=== PATIENT | female | born 1975 | race Caucasian/White ===

== ENCOUNTER 2016-12-09 08:55 | Emergency (ER) | payer OTHER ==
[~2016-12-09] VITALS: Ht 157.4 cm; Wt 68.0 kg
[~2016-12-09 08:55] MED LIST: ADVAIR 250/501 EA PO; ALBUTEROL0.09 MG/A2 PO; ATARAX25 MG PO; ATIVAN0.5 MG PO; CELEBREX200 MG PO; CELEXA40 MG PO; CITALOPRAM20 MG PO; CLARITIN10 MG PO; DICLOFENAC SOD75 MG PO; FLEXERIL5 MG PO; GABAPENTIN300 MG PO; HYDROCODONE BIT1 T11 PO; KEFLEX500 MG PO; LOMOTIL 0.025 M1 TA1 PO; MACROBID100 M1 PO; MEDROL DOSEPAK4 MG PO; MOTRIN800 MG PO; NKHM; PEN-VEE K500 MG PO; PENICILLIN VK500 MG PO; PHENERGAN25 M3 PO; PHENERGAN25 MG R; PRAVACHOL20 MG PO; PRAVACHOL40 MG PO; PRAVASTATIN SOD10 MG PO; PRAVASTATIN SOD40 MG PO; PREDNICOT20 MG PO; PRILOSEC20 M1 PO; PROVENTIL0.09 MG/AC IH; PYRIDIUM200 M1 PO; SPIRIVA18 MCG PO; SYMBICORT1 AE1 INH; TRAMADOL HCL50 MG PO; XANAX1 MG PO; ZITHROMAX Z PA250 MG PO; ZITHROMAX250 MG PO; ZOFRAN ODT4 MG SL; ZOLOFT100 MG PO; ZOLOFT50 MG PO
[2016-12-09 08:59] VITALS: BP 127/72
[2016-12-09] MEDS ORDERED: ZITHROMAX250 MG PO (10:17)
[2016-12-09] MEDS ORDERED: MEDROL DOSEPAK4 MG PO (10:17)
== END 2016-12-09 11:09 | disposition home or self-care (01) ==
LOC: ED 08:55
DX: J45.901 Unspecified asthma with (acute) exacerbation (principal); F41.9 Anxiety disorder, unspecified; F17.200 Nicotine dependence, unspecified, uncomplicated; Z79.899 Other long term (current) drug therapy; Z88.1 Allergy status to other antibiotic agents; Z88.2 Allergy status to sulfonamides; Z88.6 Allergy status to analgesic agent; Z88.8 Allergy status to other drugs, medicaments and biological substances

== ENCOUNTER 2017-01-23 22:42 | Inpatient (IN) | payer OTHER ==
[~2017-01-23] VITALS: Ht 157.5 cm; Wt 72.2 kg
--- NOTE | ~2017-01-23 | O ---
[place], [place] OPERATIVE NOTE NAME: RICHAR YADAV [facility] #: [id number] UNIT #: [id number] ROOM: 407 DOCTOR: KAITLYN MONTGOMERY MD BIRTHDATE: [birth year] DOS: 01/24/2017 PREOPERATIVE DIAGNOSIS: Acute appendicitis. POSTOPERATIVE DIAGNOSIS: Acute appendicitis. PROCEDURE: Laparoscopic appendectomy. SURGEON: Segundo Cazares ANESTHESIA: General endotracheal. ESTIMATED BLOOD LOSS: 10 mL. COMPLICATIONS: None. INDICATIONS FOR PROCEDURE: This patient is a 41-year-old white female who presented to the Emergency Room with a 2-day history of abdominal pain and nausea. CT scan was suggestive of acute appendicitis. Her physical exam was consistent with these findings as well. She is brought today for appendectomy. Also of note, the patient was presented with option of nonsurgical management and she opted to proceed with surgery. DESCRIPTION OF PROCEDURE: The patient was placed on the operating room table in supine position. After achieving adequate general endotracheal anesthesia, a Woodruff catheter was inserted following which the abdomen was prepped and draped in sterile fashion. A small vertical midline supraumbilical incision was then made. Incision was carried down through the subcutaneous fat to expose the fascia. The fascia was then opened transversely and the peritoneal cavity was entered. 0 Vicryl stay sutures were placed in the fascia following which the Carlos blunt port was then inserted. After the development of an adequate pneumoperitoneum, the laparoscope was introduced. Visualization of the tissues immediately deep to the insertion site revealed no evidence for injury to any organs. Visual inspection of the abdomen revealed a small adhesion in the pelvis, but no other significant abnormalities. A small transverse incision was made in the left lower quadrant through which a 12 mm port was inserted under direct visualization. A small vertical midline incision was made in the suprapubic skin through which a 5 mm port was inserted under direct visualization. Two Endo Babcocks were then inserted. The cecum was identified and was retracted medially. The appendix was immediately visible and noted to be hyperemic and thickened at the tip with serosal exudate. A window was created at the base of the mid appendix and the mesoappendix following which the Endo-MANDY was then inserted and using a 45 cartridge, the appendix was transected at its origin. Two additional firings were then used to transect the remainder of the mesoappendix and the appendix was completely amputated. The EndoCatch was then brought into the umbilical port site. The appendix was placed in the sac and brought out through the umbilical port site without difficulty. After redevelopment of pneumoperitoneum, copious irrigation of warm saline was performed. Hemostasis was excellent and staple lines were intact. After removal of the ports and decompression of the pneumoperitoneum, the fascia at [place], [place] OPERATIVE NOTE [id number] #: [id number] ROOM: [facility] DOCTOR: KAITLYN MONTGOMERY MD BIRTHDATE: [birth year] the umbilical port site was closed with an additional 0 Vicryl suture in [id number] fashion. All port sites were copiously irrigated and after assuring good hemostasis, the skin was closed at all port sites with a running 4-0 Monocryl subcuticular stitch following which skin glue was applied. The patient tolerated the procedure well and was taken to PACU in good condition. All tape, needle, sponge and instrument counts were correct. KAITLYN MONTGOMERY MD CM:OPRECORD:OPERATIVE NOTE [id number] KAITLYN MONTGOMERY MD 01/24/17 1640 interface
--- NOTE | ~2017-01-23 | PR ---
[place], [place] PROGRESS NOTE NAME: RICHAR YADAV [facility] #: [id number] UNIT #: [id number] ROOM: 407 DOCTOR: JESU KNOWLES MD BIRTHDATE: [birth year] DOS: SUBJECTIVE: The patient has been admitted to the hospital with acute appendicitis, with acute pain in the abdomen and she is also having 4 cm heterogeneous ____ lesion in the inferior left kidney, but there is no acute symptomatic problem regarding that. The patient has been taken to the OR for appendectomy and her CBC today showed white count 9800, hemoglobin 12.8, hematocrit 38.3. Basic metabolic today was fairly good. Vitamin B12 and folic acid was good, but there is definitely vitamin D deficiency level at 10.2. OBJECTIVE: VITAL SIGNS: Her blood pressure 133/80, pulse 53, respirations 18, temperature 97.6. JESU KNOWLES MD CM:PNTRANS [id number] JESU KNOWLES MD 01/25/17 0607 interface
[2017-01-23 22:49] VITALS: BP 106/59
[2017-01-23 23:16] LABS: BASO # 0.1 10*3/uL (0.0-0.1); BASO % 0.5 % (0.0-1.0); EOS # 0.2 10*3/uL (0.0-0.4); EOS % 1.5 % (1.0-4.0); HEMATOCRIT 36.5 % (37.0-47.0); HEMOGLOBIN 12.3 g/dl (12.0-16.0); IG # 0.1 10*3/uL (0.0-0.1); LYMPH # 3.9 10*3/uL (1.3-4.4); LYMPH % 31.8 % (27.0-41.0); MEAN CELL VOLUME 91.9 fl (81.0-99.0); MEAN CORPUSCULAR HGB CONC 33.7 g/dl (33.0-37.0); MEAN PLATELET VOLUME 9.4 fl (9.6-12.3); MONO # 0.8 10*3/uL (0.1-1.0); MONO % 6.3 % (3.0-9.0); NEUT # 7.3 10*3/uL (2.3-7.9); NEUT % 59.5 % (47.0-73.0); PLATELET COUNT AUTOMATED 303 10*3/uL (130-400); RED BLOOD COUNT 3.97 10*6/uL (4.10-5.10); RED CELL DISTRI WIDTH 12.7 % (0-14.5); WHITE BLOOD COUNT 12.2 10*3/uL (4.8-10.8)
[2017-01-23 23:31] LABS: ALBUMIN 3.1 gm/dl (3.1-4.5); ALKALINE PHOSPHATASE 99 U/L (45-117); BILIRUBIN, TOTAL 0.2 mg/dl (0.2-1.0); BUN 10 mg/dl (7-24); C-REACTIVE PROTEIN 1.78 MG/DL (0-0.3); CARBON DIOXIDE 27 mmol/L (21-32); CHLORIDE 105 mmol/L (98-107); EST GLOM FILT AFRICAN AMERICAN > 60 ml/min; GLUCOSE 86 mg/dL (65-99); POTASSIUM 3.5 mmol/L (3.5-5.1); SGOT/AST 11 IU/L (3-35); SGPT/ALT 12 U/L (12-78); SODIUM 140 mmol/L (136-145); TOTAL PROTEIN 6.7 gm/dL (6.4-8.2)
[2017-01-24] VITALS (9 sets, daily range): BP systolic 98–141; BP diastolic 58–80
[2017-01-24 00:09] LABS: BILIRUBIN NEGATIVE (NEGATIVE); BLOOD TRACE-INTACT (NEGATIVE); CLARITY SL CLOUDY (CLEAR); COLOR YELLOW (YELLOW); GLUCOSE NEGATIVE (NEGATIVE); KETONE NEGATIVE (NEGATIVE); LEUKO ESTERASE TRACE (NEGATIVE); NITRITE NEGATIVE (NEGATIVE); PROTEIN NEGATIVE (NEGATIVE); SPECIFIC GRAVITY 1.015 (1.005-1.030); UROBILINOGEN 0.2 E.U./dl (0.2-1.0)
[2017-01-24 00:25] LABS: BACTERIA 3+; URINE REFLEX COMMENT YES (NO)
[2017-01-24] MEDS ORDERED: LORATADINE D 101 T24 PO (04:01)
[2017-01-24] MEDS ORDERED: TESSALON PERLE100 MG PO (04:03)
[2017-01-24] MEDS ORDERED: OMEPRAZOLE20 M2 PO (04:03)
[2017-01-24] MEDS ORDERED: PRAVACHOL40 MG PO (04:04)
[2017-01-24] MEDS ORDERED: CELEXA40 MG PO (04:06)
[2017-01-24] MEDS ORDERED: SENNA-PLUS 50 M1 TA1 PO (04:08)
[2017-01-24 06:03] LABS: BASO # 0.1 10*3/uL (0.0-0.1); BASO % 0.5 % (0.0-1.0); EOS # 0.2 10*3/uL (0.0-0.4); EOS % 1.9 % (1.0-4.0); HEMATOCRIT 38.3 % (37.0-47.0); HEMOGLOBIN 12.8 g/dl (12.0-16.0); LYMPH # 2.9 10*3/uL (1.3-4.4); LYMPH % 29.7 % (27.0-41.0); MEAN CORPUSCULAR HGB 31.1 pg (27.0-31.0); MEAN CORPUSCULAR HGB CONC 33.4 g/dl (33.0-37.0); MONO # 0.6 10*3/uL (0.1-1.0); MONO % 6.4 % (3.0-9.0); NEUT % 61.2 % (47.0-73.0); PLATELET COUNT AUTOMATED 322 10*3/uL (130-400); RED BLOOD COUNT 4.12 10*6/uL (4.10-5.10); RED CELL DISTRI WIDTH 12.7 % (0-14.5); WHITE BLOOD COUNT 9.8 10*3/uL (4.8-10.8)
[2017-01-24 06:27] LABS: BUN 11 mg/dl (7-24); CARBON DIOXIDE 27 mmol/L (21-32); CHLORIDE 106 mmol/L (98-107); EST GLOM FILT AFRICAN AMERICAN > 60 ml/min; GLUCOSE 105 mg/dL (65-99); MAGNESIUM 2.1 mg/dL (1.5-2.1); POTASSIUM 3.8 mmol/L (3.5-5.1); SODIUM 142 mmol/L (136-145)
[2017-01-24 06:29] LABS: PHOSPHOROUS 4.8 mg/dL (2.5-4.9)
[2017-01-24 07:09] LABS: FOLIC ACID 5.76 ng/mL (>5.38); VITAMIN D, 25-HYDROXY 10.2 ng/mL (30-100)
== END 2017-01-24 17:15 | disposition home or self-care (01) | DRG 339 ==
LOC: ED 22:42 → 4E 01-24 02:31
PROVIDERS: Physician Assistant; Student in an Organized Health Care Education/Training Program
PROC: 0DTJ4ZZ Resection of Appendix, Percutaneous Endoscopic Approach (ICD-10-PCS; principal; 2017-01-24)
DX: K35.3 Acute appendicitis with localized peritonitis (principal); E44.0 Moderate protein-calorie malnutrition; F41.9 Anxiety disorder, unspecified; J44.9 Chronic obstructive pulmonary disease, unspecified; F32.9 Major depressive disorder, single episode, unspecified; E78.00 Pure hypercholesterolemia, unspecified; N28.9 Disorder of kidney and ureter, unspecified; F17.210 Nicotine dependence, cigarettes, uncomplicated; R82.71 Bacteriuria; E66.9 Obesity, unspecified; Z98.891 History of uterine scar from previous surgery; Z98.51 Tubal ligation status; Z82.49 Family history of ischemic heart disease and other diseases of the circulatory system; Z83.79 Family history of other diseases of the digestive system; Z88.2 Allergy status to sulfonamides; Z88.1 Allergy status to other antibiotic agents; Z88.8 Allergy status to other drugs, medicaments and biological substances; Z79.899 Other long term (current) drug therapy; Z68.27 Body mass index [BMI] 27.0-27.9, adult

== ENCOUNTER → 2017-04-25 | Outpatient (CLI) | payer OTHER ==
[~2017-04-25] MED LIST changes: +LORATADINE D 101 T24 PO; +OMEPRAZOLE20 M2 PO; +SENNA-PLUS 50 M1 TA1 PO; +TESSALON PERLE100 MG PO
== END | disposition home or self-care (01) ==
LOC: US 09:45
DX: R10.11 Right upper quadrant pain (principal)

== ENCOUNTER → 2017-05-06 | Outpatient (CLI) | payer OTHER | END | disposition home or self-care (01) | LOC: NM 06:48 | DX: R10.11 Right upper quadrant pain (principal); R11.0 Nausea ==

== ENCOUNTER → 2017-05-21 | Day surgery (SDC) | payer OTHER ==
[2017-05-19 12:29] LABS: BILIRUBIN NEGATIVE (NEGATIVE); BLOOD 2+ (NEGATIVE); CLARITY CLOUDY (CLEAR); COLOR YELLOW (YELLOW); GLUCOSE NEGATIVE (NEGATIVE); KETONE NEGATIVE (NEGATIVE); LEUKO ESTERASE TRACE (NEGATIVE); NITRITE NEGATIVE (NEGATIVE); SPECIFIC GRAVITY 1.015 (1.005-1.030); UROBILINOGEN 0.2 E.U./dl (0.2-1.0)
[2017-05-19 12:39] LABS: BASO # 0.1 10*3/uL (0.0-0.1); BASO % 0.4 % (0.0-1.0); EOS # 0.2 10*3/uL (0.0-0.4); EOS % 1.6 % (1.0-4.0); HEMATOCRIT 41.5 % (37.0-47.0); HEMOGLOBIN 14.2 g/dl (12.0-16.0); LYMPH # 3.6 10*3/uL (1.3-4.4); LYMPH % 31.8 % (27.0-41.0); MEAN CELL VOLUME 92.8 fl (81.0-99.0); MEAN CORPUSCULAR HGB 31.8 pg (27.0-31.0); MEAN CORPUSCULAR HGB CONC 34.2 g/dl (33.0-37.0); MEAN PLATELET VOLUME 10.2 fl (9.6-12.3); MONO # 0.5 10*3/uL (0.1-1.0); MONO % 4.4 % (3.0-9.0); NEUT % 61.4 % (47.0-73.0); PLATELET COUNT AUTOMATED 358 10*3/uL (130-400); RED BLOOD COUNT 4.47 10*6/uL (4.10-5.10); RED CELL DISTRI WIDTH 12.7 % (0-14.5); WHITE BLOOD COUNT 11.3 10*3/uL (4.8-10.8)
[2017-05-19 13:01] LABS: ALBUMIN 3.8 gm/dl (3.1-4.5); BILIRUBIN, DIRECT < 0.1 mg/dL (0.0-0.2); BUN 9 mg/dl (7-24); CHLORIDE 103 mmol/L (98-107); CREATININE 0.73 mg/dL (0.55-1.02); POTASSIUM 4.3 mmol/L (3.5-5.1); SGOT/AST 10 IU/L (3-35); SGPT/ALT 13 U/L (12-78); SODIUM 138 mmol/L (136-145)
[2017-05-19 13:02] LABS: ALKALINE PHOSPHATASE 101 U/L (45-117)
[2017-05-19 13:18] LABS: BACTERIA 3+; MUCOUS 1+; WBC 16-20 wbc/hpf (0-5)
[~2017-05-21] VITALS: Ht 157.4 cm; Wt 68.9 kg
[2017-05-21] VITALS (7 sets, daily range): BP systolic 97–148; BP diastolic 68–87
[~2017-05-21] MED LIST changes: +Percocet 325 MG1 TAB PO; +VITAMIN D-32000 UNI1 PO
--- NOTE | ~2017-05-21 | O ---
[place], [place] OPERATIVE NOTE NAME: RICHAR YADAV [facility] #: [id number] UNIT #: [id number] ROOM: DOCTOR: LENCHO WASSERMAN MD BIRTHDATE: [birth year] DOS: 05/21/2017 PREOPERATIVE DIAGNOSIS: Biliary dyskinesia. POSTOPERATIVE DIAGNOSIS: Biliary dyskinesia. PROCEDURE: Laparoscopic cholecystectomy. SURGEON: Lencho Wasserman MD GOLF COURSE PATROLLER: THUY. ANESTHESIA: GET. INDICATIONS: This is a 41-year-old lady who is here for a laparoscopic cholecystectomy for biliary dyskinesia. The procedure and its complications explained to the patient in detail preoperatively. Complications that were discussed included but were not limited to bleeding, infection, hematoma/seroma/abscess formation, prolonged postoperative pain, biloma formation, inadvertent injury to the common bile duct and incisional hernia formation. She agreed to proceed. DESCRIPTION OF PROCEDURE: After identifying the patient, the patient was brought to the operating suite and laid in the supine position. After induction of general anesthesia, a timeout procedure was called and the parts were then painted and draped in the usual sterile fashion. An incision was made in a transverse fashion below the umbilicus. The skin and the subcutaneous tissue were incised in the line of the incision. The fascia was incised vertically and stay sutures were taken on either side with 0 Vicryl. Thereafter, the peritoneum was opened and a 12-mm Carlos port was introduced into the peritoneal cavity. A pneumoperitoneum was created. Under direct vision, an epigastric incision of 10 mm and two 5-mm incisions were made in the right upper quadrant and appropriate-size ports were introduced. The gallbladder was retracted superiorly and laterally. The cystic duct and the cystic artery were carefully dissected until the critical view of safety was obtained. Thereafter, each of these structures were clipped 3 times and cut between the first and the second clip. The gallbladder was then removed from the bed of the gallbladder with the help of electrocautery. It was placed in an EndoCatch bag and removed from the peritoneal cavity and sent for histopathological diagnosis. Thereafter, the liver bed was inspected for bleeding and there was no bleeding seen. At this point, the right upper quadrant and the epigastric ports were removed and there was no bleeding seen. The umbilical port was also removed and the 2 stay sutures were tied together. An additional 0 Vicryl stitch was taken in order to close the fascial defect. Thereafter, the edges of the skin was infiltrated with 1% lidocaine and were approximated with the help of 4-0 Vicryl in a subcuticular running fashion. Dressings were placed. The patient tolerated the procedure well. There were no complications. She was extubated uneventfully and brought back to the recovery room in a stable fashion. Dr. Lencho Wasserman, the attending surgeon, was present throughout the operating case. [place], [place] OPERATIVE NOTE NAME: RICHAR YADAV UNIT #: [id number] ROOM: DOCTOR: LENCHO WASSERMAN MD BIRTHDATE: [birth year] Lencho Wasserman MD CM:OPRECORD:OPERATIVE NOTE [id number] LENCHO WASSERMAN MD 05/21/17 1104 interface
== END | disposition home or self-care (01) ==
LOC: SDC 05-19 11:00
PROVIDERS: Surgery
DX: K81.1 Chronic cholecystitis (principal); F41.9 Anxiety disorder, unspecified; J44.9 Chronic obstructive pulmonary disease, unspecified; F32.9 Major depressive disorder, single episode, unspecified; E78.5 Hyperlipidemia, unspecified; Z79.899 Other long term (current) drug therapy; Z88.8 Allergy status to other drugs, medicaments and biological substances; Z88.2 Allergy status to sulfonamides; Z98.51 Tubal ligation status; Z90.49 Acquired absence of other specified parts of digestive tract

== ENCOUNTER → 2017-07-13 | Outpatient (CLI) | payer OTHER ==
[2017-07-13 10:52] LABS: BASO # 0.1 10*3/uL (0.0-0.1); BASO % 0.4 % (0.0-1.0); EOS # 0.1 10*3/uL (0.0-0.4); EOS % 0.9 % (1.0-4.0); HEMATOCRIT 39.8 % (37.0-47.0); HEMOGLOBIN 13.4 g/dl (12.0-16.0); LYMPH # 3.2 10*3/uL (1.3-4.4); MEAN CELL VOLUME 92.6 fl (81.0-99.0); MEAN CORPUSCULAR HGB 31.2 pg (27.0-31.0); MEAN CORPUSCULAR HGB CONC 33.7 g/dl (33.0-37.0); MEAN PLATELET VOLUME 9.7 fl (9.6-12.3); MONO # 0.6 10*3/uL (0.1-1.0); MONO % 4.2 % (3.0-9.0); NEUT # 9.9 10*3/uL (2.3-7.9); NEUT % 71.2 % (47.0-73.0); PLATELET COUNT AUTOMATED 356 10*3/uL (130-400); RED CELL DISTRI WIDTH 12.7 % (0-14.5); WHITE BLOOD COUNT 13.9 10*3/uL (4.8-10.8)
== END | disposition home or self-care (01) ==
LOC: LAB 10:07
PROVIDERS: Obstetrics & Gynecology
DX: N92.1 Excessive and frequent menstruation with irregular cycle (principal); N93.8 Other specified abnormal uterine and vaginal bleeding

== ENCOUNTER → 2017-07-20 | Day surgery (SDC) | payer OTHER ==
[2017-07-13 10:14] VITALS: BP 128/74
[~2017-07-20] VITALS: Ht 157.4 cm; Wt 68.9 kg
--- NOTE | ~2017-07-20 | WRIGHTHP ---
[place], [place] PATIENT HISTORY AND PHYSICAL EXAM NAME: RICHAR YADAV [facility] #: [id number] UNIT #: [id number] ROOM: DOCTOR: BRIJESH AZUL MD BIRTHDATE: [birth year] DOS: 07/21/2017 REFERRING PHYSICIAN: HISTORY OF PRESENT ILLNESS: This is a 40-year-old white female who is a 5, para 5, whose last menstrual period is just recently 07/15/2017, who was seen on 06/24/2017 for 2 main issues. 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 She had not been evaluated for this, but I strongly encouraged her to do so. The second reason that she was seen was for a significant DUB x 5 years. She states that this bleeding is getting much worse recently. She used to having monthly menses lasting 6 days and now has 2-3-day bleeding episodes per month that are extremely heavy. The patient had a laparoscopic appendectomy and had a normal pelvis otherwise. I reviewed with the patient at this age and with her and parity and with the fact that she had a tubal ligation that we could proceed with NovaSure endometrial ablation or Mirena IUD. The patient opted for the NovaSure endometrial ablation along with D and C and hysteroscopy. The risks, benefits, indications, potential complications, and alternatives were reviewed with the patient, understanding stated and she did sign a consent. PAST MEDICAL HISTORY: Reveals a history of COPD, hypoglycemia, anxiety and a previous history of cocaine and marijuana usage. She is status post tubal ligation. She had normal mammogram in 2013. She had a normal Pap smear about 3 years ago. She has had 5 pregnancies, 4 vaginal deliveries and a . She had a laparoscopic appendectomy as I mentioned, a , 4 vaginal deliveries, tonsillectomy, cardiac catheterization, and colonoscopy. SOCIAL HISTORY: The patient does smoke about a pack a day, does continue to use some marijuana. She does not drink. MEDICATIONS: The patient uses pravastatin 40 mg daily, Ventolin inhaler on an as needed basis and vitamin D. ALLERGIES: She states allergies to BENADRYL, BACTRIM, DOXYCYCLINE, and TRAMADOL. FAMILY HISTORY: Reveals her father with diabetes and heart disease. Mother has diabetes and liver disease. Maternal aunt also has breast cancer. PHYSICAL EXAMINATION: GENERAL: Reveals a pleasant white female in no significant distress. VITAL SIGNS: Not listed in the patient's office note, which is most unusual. HEENT and NECK: Normal. LUNGS: Clear particularly in relation to the COPD diagnosis. CARDIAC: Rate reveals a regular rate and rhythm without murmur. BREASTS: Normal. ABDOMEN: Normal. NEUROLOGIC: Normal. GENITOURINARY: External genitalia, vagina and cervix are normal. Uterus is [place], [place] PATIENT HISTORY AND PHYSICAL EXAM NAME: RICHAR YADAV UNIT #: [id number] ROOM: DOCTOR: BRIJESH AZUL MD BIRTHDATE: [birth year] anteverted and anteflexed without significant enlargement, nontender. Adnexa were negative. RECTAL: Deferred. I do now have vital signs, which revealed a blood pressure of 132/82. She is 5 feet 2 inches, 152 pounds, BMI is listed as 39.5 and I believe that that is too large being 5 feet 2 inches and 152 pounds. O2 sat is normal and she has no sleep apnea. ASSESSMENT: A patient with irregular cycling, progressively worsening menorrhagia who is status post tubal ligation, desires more definitive therapy. To that end, the patient will undergo D and C hysteroscopy and NovaSure endometrial ablation on 07/20/2017. BRIJESH AZUL MD CM:HISPHYS:PATIENT HISTORY AND PHYSICAL EXAMINATION 5 1115 BRIJESH AZUL MD 07/18/17 1259 interface
--- NOTE | ~2017-07-20 | O ---
[place], [place] OPERATIVE NOTE NAME: RICHAR YADAV [facility] #: [id number] UNIT #: [id number] ROOM: DOCTOR: BRIJESH REARDON MD BIRTHDATE: [birth year] DOS: 07/20/2017 PREOPERATIVE DIAGNOSES: Worsening menorrhagia and irregular cycles in a patient, status post tubal ligation, who desires more definitive therapy. POSTOPERATIVE DIAGNOSES: Worsening menorrhagia and irregular cycles in a patient, status post tubal ligation, who desires more definitive therapy. NAME OF OPERATION: Hysteroscopy, D and C and NovaSure endometrial ablation. SURGEON: Dr. Reardon and Dr. Wayne. ANESTHESIA: MAC and paracervical block using 2% Nesacaine, 5 mL each at 4 and 7 o'clock respectively. ESTIMATED BLOOD LOSS: Minimal. REPLACEMENTS: IV fluids and Toradol. COMPLICATIONS: There were no complications. CONDITION: The patient's condition to recovery stable. OPERATIVE SUMMARY: The patient was taken to the operating room in supine position, MAC anesthesia, lithotomy position, prepped and draped in routine manner. Cervix was grasped and then a paracervical block of 2% Nesacaine was placed at 4 and 7 o'clock respectively, 5 mL each. The uterus was then sounded to 8.5 cm followed by progressive dilatation of the cervix. Hysteroscope was introduced and a hysteroscopic exam of the intrauterine cavity revealed a symmetric intrauterine cavity, no fibroids or polyps noted. There was some shaggy tissue consistent perhaps with secretory or some form of to the tissue was consistent with secretory endometrium. A thorough D and C was then undertaken with curets and stone forceps followed by placement of our NovaSure device and after achieving the appropriate depth and width and noticing that the cavity was intact. Per CO2 challenge, we proceeded with her NovaSure ablation. Once this was completed, we removed the device and placed a hysteroscope into the uterine cavity again and noted an excellent global ablation and no other atypicalities. All instrumentation was removed. A couple 2-0 chromic sutures were placed at the 12 o'clock position with a tenaculum, had been leading to good hemostasis. Once this was completed, the patient was cleaned off, taken out of lithotomy position, awakened and transferred to recovery with good hemostasis, stable vital signs, stable sponge and instrument count and she had a urine output of about 100 mL total. This was clear. [place], [place] OPERATIVE NOTE NAME: VICENTARICHAR Tim UNIT #: [id number] ROOM: DOCTOR: BRIJESH REARDON MD BIRTHDATE: [birth year] BRIJESH REARDON MD CM:OPRECORD:OPERATIVE NOTE 1002 1029 ALENA REARDON MD 07/20/17 1030 interface
[2017-07-20 08:39] VITALS: BP 110/64
[2017-07-20 09:44] VITALS: BP 159/75
[2017-07-20 10:00] VITALS: BP 116/66
[2017-07-20 10:13] VITALS: BP 124/70
[2017-07-20 10:35] VITALS: BP 122/67
[2017-07-20 10:41] VITALS: BP 120/60
== END | disposition home or self-care (01) ==
LOC: SDC 07-13 10:15
DX: N92.1 Excessive and frequent menstruation with irregular cycle (principal); J44.9 Chronic obstructive pulmonary disease, unspecified; F41.9 Anxiety disorder, unspecified; F32.9 Major depressive disorder, single episode, unspecified; F17.210 Nicotine dependence, cigarettes, uncomplicated; Z98.51 Tubal ligation status; Z90.49 Acquired absence of other specified parts of digestive tract; Z88.1 Allergy status to other antibiotic agents; Z88.8 Allergy status to other drugs, medicaments and biological substances; Z79.899 Other long term (current) drug therapy; E78.5 Hyperlipidemia, unspecified; K21.9 Gastro-esophageal reflux disease without esophagitis; Z82.49 Family history of ischemic heart disease and other diseases of the circulatory system

== ENCOUNTER → 2017-12-01 | Outpatient (CLI) | payer OTHER ==
[2017-12-01 15:44] LABS: BASO # 0.1 10*3/uL (0.0-0.1); BASO % 0.5 % (0.0-1.0); EOS # 0.2 10*3/uL (0.0-0.4); EOS % 1.3 % (1.0-4.0); HEMATOCRIT 40.3 % (37.0-47.0); HEMOGLOBIN 13.3 g/dl (12.0-16.0); LYMPH # 3.9 10*3/uL (1.3-4.4); LYMPH % 30.3 % (27.0-41.0); MEAN CELL VOLUME 93.9 fl (81.0-99.0); MEAN PLATELET VOLUME 9.8 fl (9.6-12.3); MONO # 0.8 10*3/uL (0.1-1.0); MONO % 5.9 % (3.0-9.0); NEUT % 61.7 % (47.0-73.0); PLATELET COUNT AUTOMATED 357 10*3/uL (130-400); RED BLOOD COUNT 4.29 10*6/uL (4.10-5.10); RED CELL DISTRI WIDTH 12.8 % (0-14.5)
[2017-12-01 15:59] LABS: ALBUMIN 3.3 gm/dl (3.1-4.5); ALKALINE PHOSPHATASE 91 U/L (45-117); BUN 8 mg/dl (7-24); CHLORIDE 103 mmol/L (98-107); CREATININE 0.73 mg/dL (0.55-1.02); POTASSIUM 3.7 mmol/L (3.5-5.1); SGOT/AST 8 IU/L (3-35); SGPT/ALT 11 U/L (12-78); SODIUM 137 mmol/L (136-145); TOTAL PROTEIN 7.1 gm/dL (6.4-8.2)
[2017-12-01 16:01] LABS: FREE T4 0.94 ng/dl (0.76-1.46)
[2017-12-02 17:06] LABS: RHEUMATOID ARTHRITIS FACTOR <10.0 IU/mL (0.0-13.9)
[2017-12-03 00:08] LABS: CCP ANTIBODIES IGG/IGA 31 units (0-19)
== END | disposition home or self-care (01) ==
LOC: LAB 15:12 → MAMMO 16:20
PROVIDERS: Internal Medicine
DX: Z12.31 Encounter for screening mammogram for malignant neoplasm of breast (principal); M25.572 Pain in left ankle and joints of left foot; M25.571 Pain in right ankle and joints of right foot

== ENCOUNTER → 2017-12-20 | Outpatient (CLI) | payer OTHER | END | disposition home or self-care (01) | LOC: RAD 11:50 | DX: M06.071 Rheumatoid arthritis without rheumatoid factor, right ankle and foot (principal); M06.072 Rheumatoid arthritis without rheumatoid factor, left ankle and foot ==

== ENCOUNTER 2018-02-05 18:18 | Emergency (ER) | payer OTHER ==
[~2018-02-05] VITALS: Wt 68.0 kg
[2018-02-05 18:21] VITALS: BP 134/70
[2018-02-05] MEDS ORDERED: DELTASONE20 M1 PO (18:39)
== END 2018-02-05 18:44 | disposition home or self-care (01) ==
LOC: ED 18:18
DX: M79.7 Fibromyalgia (principal); F17.200 Nicotine dependence, unspecified, uncomplicated; Z79.899 Other long term (current) drug therapy; Z88.1 Allergy status to other antibiotic agents; Z88.2 Allergy status to sulfonamides; Z88.6 Allergy status to analgesic agent; Z88.8 Allergy status to other drugs, medicaments and biological substances

== ENCOUNTER 2018-04-28 13:13 | Emergency (ER) | payer OTHER ==
[~2018-04-28] VITALS: Ht 157.4 cm; Wt 68.0 kg
[~2018-04-28 13:13] MED LIST changes: +DELTASONE20 M1 PO
[2018-04-28 13:17] VITALS: BP 104/43
== END 2018-04-28 15:20 | disposition home or self-care (01) ==
LOC: ED 13:13
DX: Z00.00 Encounter for general adult medical examination without abnormal findings (principal); F17.200 Nicotine dependence, unspecified, uncomplicated; Z88.2 Allergy status to sulfonamides; Z88.1 Allergy status to other antibiotic agents; Z88.6 Allergy status to analgesic agent; Z88.8 Allergy status to other drugs, medicaments and biological substances; Z79.899 Other long term (current) drug therapy

== ENCOUNTER 2019-06-19 13:18 | Emergency (ER) | payer SELFPAY ==
[~2019-06-19] VITALS: Ht 157.4 cm; Wt 59.0 kg
[2019-06-19 13:20] VITALS: BP 134/72
== END 2019-06-19 15:36 | disposition home or self-care (01) ==
LOC: ED 13:18
DX: M54.12 Radiculopathy, cervical region (principal); M79.7 Fibromyalgia; J44.9 Chronic obstructive pulmonary disease, unspecified; F17.200 Nicotine dependence, unspecified, uncomplicated; Z88.2 Allergy status to sulfonamides; Z88.8 Allergy status to other drugs, medicaments and biological substances; Z88.1 Allergy status to other antibiotic agents; Z79.899 Other long term (current) drug therapy

== ENCOUNTER 2019-07-07 17:45 | Emergency (ER) | payer SELFPAY ==
[~2019-07-07] VITALS: Ht 157.4 cm; Wt 61.2 kg
[2019-07-07 17:48] VITALS: BP 153/70
[2019-07-07] MEDS ORDERED: IBU600 M1 PO (19:29)
== END 2019-07-07 19:40 | disposition home or self-care (01) ==
LOC: ED 17:45
DX: S90.31XA Contusion of right foot, initial encounter (principal); J45.909 Unspecified asthma, uncomplicated; F17.200 Nicotine dependence, unspecified, uncomplicated; Z88.2 Allergy status to sulfonamides; Z88.8 Allergy status to other drugs, medicaments and biological substances; Z88.1 Allergy status to other antibiotic agents; Z88.6 Allergy status to analgesic agent; Z79.899 Other long term (current) drug therapy; W20.8XXA Other cause of strike by thrown, projected or falling object, initial encounter; Y93.89 Activity, other specified; Y92.89 Other specified places as the place of occurrence of the external cause; Y99.8 Other external cause status

== ENCOUNTER 2019-08-08 15:37 | Emergency (ER) | payer SELFPAY ==
[~2019-08-08] VITALS: Ht 157.4 cm; Wt 59.0 kg
[~2019-08-08 15:37] MED LIST changes: +IBU600 M1 PO
[2019-08-08 15:39] VITALS: BP 151/75
[2019-08-08] MEDS ORDERED: AMOXICILLIN500 M2 PO (17:36)
== END 2019-08-08 17:39 | disposition home or self-care (01) ==
LOC: ED 15:37
DX: J02.9 Acute pharyngitis, unspecified (principal); L50.9 Urticaria, unspecified; H92.03 Otalgia, bilateral; J44.9 Chronic obstructive pulmonary disease, unspecified; E78.00 Pure hypercholesterolemia, unspecified; E66.9 Obesity, unspecified; F17.200 Nicotine dependence, unspecified, uncomplicated; Z88.2 Allergy status to sulfonamides; Z88.1 Allergy status to other antibiotic agents; Z88.6 Allergy status to analgesic agent; Z88.8 Allergy status to other drugs, medicaments and biological substances; Z79.899 Other long term (current) drug therapy

== ENCOUNTER 2019-12-27 14:16 | Emergency (ER) | payer OTHER ==
[~2019-12-27] VITALS: Ht 157.4 cm; Wt 61.2 kg
[~2019-12-27 14:16] MED LIST changes: +AMOXICILLIN500 M2 PO
[2019-12-27 14:21] VITALS: BP 148/82
== END 2019-12-27 16:18 | disposition left against medical advice (07) ==
LOC: ED 14:16
DX: M25.561 Pain in right knee (principal); F17.200 Nicotine dependence, unspecified, uncomplicated; Z88.2 Allergy status to sulfonamides; Z88.8 Allergy status to other drugs, medicaments and biological substances; Z88.1 Allergy status to other antibiotic agents; Z88.6 Allergy status to analgesic agent; Z79.899 Other long term (current) drug therapy; X58.XXXA Exposure to other specified factors, initial encounter; Y93.89 Activity, other specified; Y92.89 Other specified places as the place of occurrence of the external cause; Y99.8 Other external cause status

== ENCOUNTER → 2020-01-10 | Outpatient (CLI) | payer OTHER | END | disposition home or self-care (01) | LOC: COVID19 11:42 | DX: R05 Cough (principal); J44.9 Chronic obstructive pulmonary disease, unspecified; F41.9 Anxiety disorder, unspecified; R73.9 Hyperglycemia, unspecified; Z20.828 Contact with and (suspected) exposure to other viral communicable diseases ==

== ENCOUNTER → 2020-05-22 | Outpatient (CLI) | payer OTHER ==
[2020-05-23 12:07] LABS: COMPLEMENT C4 26 mg/dL (14-44)
[2020-05-23 13:09] LABS: ANTI-DSDNA ANTIBODIES <1 IU/mL (0-9)
== END | disposition home or self-care (01) ==
LOC: LAB 09:55
PROVIDERS: ATTEND Internal Medicine Nephrology
DX: M25.521 Pain in right elbow (principal); M32.9 Systemic lupus erythematosus, unspecified

== ENCOUNTER → 2020-07-12 | Outpatient (CLI) | payer OTHER | END | disposition home or self-care (01) | LOC: RAD 14:23 | PROVIDERS: ATTEND Internal Medicine Nephrology | DX: R07.89 Other chest pain (principal) ==

== ENCOUNTER → 2020-12-03 | Outpatient (CLI) | payer OTHER | END | disposition home or self-care (01) | LOC: RAD 09:40 | PROVIDERS: ATTEND Internal Medicine Nephrology | DX: M25.521 Pain in right elbow (principal) ==

== ENCOUNTER 2020-12-13 12:23 | Emergency (ER) | payer OTHER ==
[~2020-12-13] VITALS: Wt 70.3 kg
[2020-12-13 12:27] VITALS: BP 110/78
== END 2020-12-13 15:22 | disposition home or self-care (01) ==
LOC: ED 12:23
DX: M13.851 Other specified arthritis, right hip (principal); F17.200 Nicotine dependence, unspecified, uncomplicated; Z88.2 Allergy status to sulfonamides; Z88.8 Allergy status to other drugs, medicaments and biological substances; Z79.899 Other long term (current) drug therapy; Z95.818 Presence of other cardiac implants and grafts; Z98.890 Other specified postprocedural states; Z98.51 Tubal ligation status

== ENCOUNTER → 2020-12-31 | Outpatient (CLI) | payer OTHER | END | disposition home or self-care (01) | LOC: LAB 10:20 | PROVIDERS: ATTEND Internal Medicine Nephrology | DX: M25.551 Pain in right hip (principal) ==

== ENCOUNTER → 2021-07-11 | Outpatient (CLI) | payer OTHER | END | disposition home or self-care (01) | LOC: COVID19 16:35 | PROVIDERS: ATTEND Podiatrist Foot & Ankle Surgery | DX: Z11.52 Encounter for screening for COVID-19 (principal) ==

== ENCOUNTER → 2021-07-24 | Outpatient (CLI) | payer OTHER | LOC: US 10:55 | PROVIDERS: ATTEND Internal Medicine Nephrology | DX: M79.605 Pain in left leg (principal) ==

== ENCOUNTER → 2021-09-20 | Outpatient (CLI) | payer OTHER | END | disposition home or self-care (01) | LOC: CT 13:00 → RAD 13:08 | PROVIDERS: ATTEND Internal Medicine Nephrology | DX: G93.89 Other specified disorders of brain (principal); M25.522 Pain in left elbow; W19.XXXA Unspecified fall, initial encounter; Y93.89 Activity, other specified; Y92.89 Other specified places as the place of occurrence of the external cause; Y99.8 Other external cause status ==

== ENCOUNTER 2022-11-24 15:13 | Emergency (ER) | payer OTHER ==
[~2022-11-24] VITALS: Ht 162.5 cm; Wt 72.6 kg
[2022-11-24 15:31] VITALS: BP 145/80
[2022-11-24] MEDS ORDERED: KETOROLAC10 MG PO (16:12)
[2022-11-24] MEDS ORDERED: CYCLOBENZAPRINE10 MG PO (16:12)
== END 2022-11-24 16:33 | disposition home or self-care (01) ==
LOC: ED 15:13
DX: M79.7 Fibromyalgia (principal)

== ENCOUNTER 2023-08-04 11:16 | Emergency (ER) | payer SELFPAY ==
[~2023-08-04] VITALS: Ht 157.4 cm; Wt 68.0 kg
[~2023-08-04 11:16] MED LIST changes: +CYCLOBENZAPRINE10 MG PO; +KETOROLAC10 MG PO
[2023-08-04 12:06] VITALS: BP 126/86
[2023-08-04] MEDS ORDERED: CYCLOBENZAPRINE5 M3 PO (14:50)
== END 2023-08-04 14:57 | disposition home or self-care (01) ==
LOC: ED 11:16
DX: M54.42 Lumbago with sciatica, left side (principal); F41.9 Anxiety disorder, unspecified; F32.A Depression, unspecified; J44.9 Chronic obstructive pulmonary disease, unspecified; M79.7 Fibromyalgia; Z88.2 Allergy status to sulfonamides; Z88.6 Allergy status to analgesic agent; Z88.8 Allergy status to other drugs, medicaments and biological substances; Z90.49 Acquired absence of other specified parts of digestive tract; Z90.89 Acquired absence of other organs; Z95.5 Presence of coronary angioplasty implant and graft; Z98.51 Tubal ligation status; Z98.890 Other specified postprocedural states; F17.200 Nicotine dependence, unspecified, uncomplicated; F12.90 Cannabis use, unspecified, uncomplicated

== ENCOUNTER 2024-06-03 17:03 | Emergency (ER) | payer OTHER ==
[~2024-06-03 17:03] MED LIST changes: +CYCLOBENZAPRINE5 M3 PO
[2024-06-04] MEDS ORDERED: XEROFORM PETRO1 EACH TD (08:50)
[2024-06-04] MEDS ORDERED: POLYTRIM 1000010 ML OPH (08:50)
[2024-06-04] MEDS ORDERED: BACITRAYCIN PLU28 GM TD (08:50)
== END 2024-06-03 19:03 | disposition left against medical advice (07) ==
LOC: ED 17:03
DX: H57.89 Other specified disorders of eye and adnexa (principal); Z53.21 Procedure and treatment not carried out due to patient leaving prior to being seen by health care provider

== ENCOUNTER 2024-06-04 08:22 | Emergency (ER) | payer OTHER ==
[~2024-06-04] VITALS: Ht 157.4 cm; Wt 72.6 kg
[2024-06-04 08:35] VITALS: BP 133/59
[2024-06-04] MEDS ORDERED: BACITRAYCIN PLU28 GM TD (08:50)
[2024-06-04] MEDS ORDERED: XEROFORM PETRO1 EACH TD (08:50)
[2024-06-04] MEDS ORDERED: Bacitracin Zinc 14 GM TUBE T ONE (08:50)
[2024-06-04] MEDS ORDERED: POLYTRIM 1000010 ML OPH (08:50)
== END 2024-06-04 08:55 | disposition home or self-care (01) ==
LOC: ED 08:22
DX: T20.20XA Burn of second degree of head, face, and neck, unspecified site, initial encounter (principal); T31.0 Burns involving less than 10% of body surface; J44.9 Chronic obstructive pulmonary disease, unspecified; F41.9 Anxiety disorder, unspecified; F32.A Depression, unspecified; M79.7 Fibromyalgia; F17.200 Nicotine dependence, unspecified, uncomplicated; F12.90 Cannabis use, unspecified, uncomplicated; Z88.2 Allergy status to sulfonamides; Z88.6 Allergy status to analgesic agent; Z88.5 Allergy status to narcotic agent; Z88.8 Allergy status to other drugs, medicaments and biological substances; Z90.89 Acquired absence of other organs; Z98.51 Tubal ligation status; Z90.49 Acquired absence of other specified parts of digestive tract; Z95.5 Presence of coronary angioplasty implant and graft; Z98.890 Other specified postprocedural states; X08.8XXA Exposure to other specified smoke, fire and flames, initial encounter; Y93.G3 Activity, cooking and baking; Y92.89 Other specified places as the place of occurrence of the external cause; Y99.8 Other external cause status